=== PATIENT | female | born 1930 | race Caucasian/White ===

== ENCOUNTER 2017-04-06 19:46 | Emergency (ER) | payer MEDICARE, BC ==
[2017-04-06] MEDS ORDERED: ASPIRIN 81 MG TAB PO STA (19:54)
[2017-04-06 19:55] VITALS: TEMP 97.9
--- NOTE | 2017-04-06 20:14 | ERD ---
ER Documentation Chief Complaint Chief Complaint HPI 86-year-old female presents with left lateral pain along her lower rib cage that began approximately 4 hours ago. Also has some pain in her right upper quadrant. Denies shortness of breath, nausea or vomiting. Also denies being lightheaded. Does have electronic pacemaker after multiple ablations for having a fast heart rhythm. She is from [place], [place]. ROS All systems reviewed and are negative except as per history of present illness. Medications Home Meds Active Scripts Nitroglycerin* (Nitroglycerin* SL) 0.4 Mg Tab.subl, 0.4 MG SL Q5MIN Y for CHEST PAIN, #14 BOTTLE Prov:SALLIE SARKAR DO 04/06/17 Polyethylene Glycol* (Miralax*) 17 Gm Powd.pack, 17 GM PO DAILY for CONSTIPATION , #7 Prov:SALLIE SARKAR DO 04/06/17 Furosemide* (Lasix*) 20 Mg Tablet, 20 MG PO BID, #14 TAB Prov:SALLIE SARKAR DO 04/06/17 Physical Exam Vitals Vital Signs Date Time Temp Pulse Resp B/P Pulse Ox O2 Delivery O2 Flow Rate FiO2 04/06/17 22:06 04/06/17 22:00 70 17 104/80 99 Room Air 04/06/17 20:25 70 18 102/62 100 Room Air 04/06/17 19:55 97.9 70 17 107/65 100 Room Air Physical Exam Const: [] Mild distress Head: Atraumatic Eyes: Normal Conjunctiva ENT: Normal External Ears, Nose and Mouth. Neck: Full range of motion..~ No meningismus. Resp: Clear to auscultation bilaterally Cardio: Regular rate and rhythm, no murmurs Abd: Soft, right upper quadrant tenderness without guarding or rebound, non distended. Normal bowel sounds Skin: No petechiae or rashes Back: No midline or flank tenderness Ext: No cyanosis, or edema Neur: Awake and alert Psych: Mildly anxious Result Diagram: 04/06/17195704/06/171957 Results 24 hrs Laboratory Tests Test 04/06/17 19:58 04/06/17 21:49 White Blood Count 8.310^3/ul Red Blood Count 3.3810^6/ul Hemoglobin 11.1g/dl Hematocrit 33.7% Mean Corpuscular Volume 99.7fl Mean Corpuscular Hemoglobin 32.8pg Mean Corpuscular Hemoglobin Concent 32.9g/dl Red Cell Distribution Width 13.4% Platelet Count 48598^3/UL Mean Platelet Volume 10.8fl Neutrophils % 46.6% Lymphocytes % 45.3% Monocytes % 5.6% Eosinophils % 1.6% Basophils % 0.8% Nucleated Red Blood Cells % 0.0/100WBC Neutrophils # 3.910^3/ul Lymphocytes # 3.810^3/ul Monocytes # 0.510^3/ul Eosinophils # 0.110^3/ul Basophils # 0.110^3/ul Nucleated Red Blood Cells # 0.010^3/ul Prothrombin Time 36.8Sec Prothrombin Time Ratio 2.9 INR International Normalized Ratio 3.64 Activated Partial Thromboplast Time 66.0Sec Sodium Level 140mmol/L Potassium Level 4.8mmol/L Chloride Level 102mmol/L Carbon Dioxide Level 30mmol/L Anion Gap 13 Blood Urea Nitrogen 23mg/dl Creatinine 1.00mg/dl Glucose Level 97mg/dl Calcium Level 9.3mg/dl Total Bilirubin 0.3mg/dl Direct Bilirubin 0.00mg/dl Indirect Bilirubin 0.3mg/dl Aspartate Amino Transf (AST/SGOT) 33IU/L Alanine Aminotransferase (ALT/SGPT) 32IU/L Alkaline Phosphatase 100IU/L Troponin I 0.019ng/ml 0.021ng/ml B-Type Natriuretic Peptide 3210PG/ML Total Protein 7.5g/dl Albumin 3.8g/dl Globulin 3.70g/dl Albumin/Globulin Ratio 1.02 Lipase 146U/L Current Medications Medications (Trade) Dose Ordered Sig/Jared Route PRN Reason Start Time Stop Time Status Last Admin Dose Admin Aspirin (Aspirin) 162 mg ONCE STAT PO 04/06/17 19:54 04/06/17 19:56 DC 04/06/17 20:34 Morphine Sulfate (morphine) 2 mg ONCE STAT IV 04/06/17 20:51 04/06/17 20:52 DC Procedures/MDM Atypical chest pain and elderly female with multiple risk factors for acute coronary syndrome. However patient did not want to stay in the hospital at all. I told her the preference would be for her to stay because of her multiple risk factors and acute onset of chest pain she does not want to stay in the hospital. She did state she had a recent cardiac workup including echocardiogram and oncologist told that everything was normal. This was just this month. He was given a total of 324 mg aspirin including with the paramedics gave. Her pain decreased in the first hour in the emergency room and she had no further symptoms. Does have an elevated BNP but does have a history of CHF and is already on Lasix. I am going to discharge her with additional dose of Lasix. She also requests a prescription nitroglycerin. Given her this as well as MiraLAX for potential constipation causing it could be transient both extreme left upper quadrant and right upper quadrant pain. She states she is having normal problems however. Am recommending she follow- up with a primary care doctor tomorrow or the next day and obtain an echocardiogram although she is already had one recently. EKG interpretation: Electronically paced rhythm rate of 70, significant artifact , and anterolateral ST elevations in V3 through V5 however ST depression with inverted T-wave in V6. Interpretation: I see no acute process. I see no pulmonary edema, no pneumothorax, no infiltrates, no fractures machine accountant interpretation: Paced rhythm rate of 70. Departure Diagnosis: Primary Impression: Chest pain Additional Impressions: CHF (congestive heart failure) Normocytic anemia Condition: Stable MELLOHOUSTONSALLIENICOLE ROSARIO Apr 06, 2017 20:14
[2017-04-06 20:36] LABS: BASOPHIL # 0.1 10^3/ul (0.0-0.1); BASOPHILS % 0.8 % (0.0-2.0); EOSINOPHILS # 0.1 10^3/ul (0.0-0.5); EOSINOPHILS % 1.6 % (0.0-7.0); HEMATOCRIT 33.7 % (37.0-47.0); HEMOGLOBIN 11.1 g/dl (12.0-16.0); LYMPHOCYTES # 3.8 10^3/ul (0.8-2.9); LYMPHOCYTES % 45.3 % (15.0-51.0); MEAN CORPUSCULAR HEMOGLOBIN 32.8 pg (29.0-33.0); MEAN CORPUSCULAR HGB CONC 32.9 g/dl (32.0-37.0); MEAN CORPUSCULAR VOLUME 99.7 fl (82.0-101.0); MEAN PLATELET VOLUME 10.8 fl (7.4-10.4); MONOCYTE # 0.5 10^3/ul (0.3-0.9); MONOCYTES % 5.6 % (0.0-11.0); NEUTROPHIL # 3.9 10^3/ul (1.6-7.5); NEUTROPHILS % 46.6 % (39.0-77.0); PLATELET COUNT 184 10^3/UL (140-415); RED BLOOD COUNT 3.38 10^6/ul (4.20-5.40); RED CELL DISTRIBUTION WIDTH 13.4 % (11.5-14.5); WHITE BLOOD COUNT 8.3 10^3/ul (4.8-10.8)
[2017-04-06] MEDS ORDERED: morphine 2 MG INJ IV STA (20:51)
[2017-04-06 21:02] LABS: INR 3.64; PROTIME 36.8 Sec (12.2-14.2); PT RATIO 2.9
[2017-04-06 21:09] LABS: ALBUMIN 3.8 g/dl (3.3-4.9); ALBUMIN/GLOBULIN RATIO 1.02; BILIRUBIN,INDIRECT 0.3 mg/dl (0-1.1); BILIRUBIN,TOTAL 0.3 mg/dl (0.2-1.3); CALCIUM 9.3 mg/dl (8.4-10.2); POTASSIUM 4.8 mmol/L (3.5-5.1); TOTAL PROTEIN 7.5 g/dl (6.1-8.1)
[2017-04-06 21:18] LABS: TROPONIN-I 0.019 ng/ml (0.00-0.12)
--- NOTE | 2017-04-06 21:18 | RADRPT ---
PROCEDURE: Portable chest x-ray. CLINICAL INDICATION: Chest pain. TECHNIQUE: Portable AP view of the chest. COMPARISON: None. FINDINGS: No pulmonary edema or conolidation is identified. The cardiac silhouette is enlarged. There is a ri ght chest cardiac pacemaker. There are aortic calcifications. No pleural effusion is seen. There i s no pneumothorax. IMPRESSION: 1. No evidence of acute cardiopulmonary disease. 2. Enlarged cardiac silhouette and aortic atherosclerosis. 3. Cardiac pacemaker. RPTAT: HTAR .Chalino Lopez MD, MD Date Time Electronically viewed and signed by .Chalino Lopez MD, on 04/06/2017 21:18 .R/
[2017-04-06 22:00] VITALS: BP 104/80; PULSE 70; RESP 17
[2017-04-06] MEDS ORDERED: FURO-110 PO (23:40)
[2017-04-06] MEDS ORDERED: POLY17PO6 PO (23:41)
[2017-04-06] MEDS ORDERED: NITR0.4T32 SL (23:46)
== END 2017-04-06 23:59 | disposition home or self-care (01) ==
LOC: E/R 19:46
DX: I50.9 Heart failure, unspecified (principal); D64.9 Anemia, unspecified; Z95.0 Presence of cardiac pacemaker
CPT/HCPCS: 36415; 71010; 80053; 83690; 83880; 84484; 85025; 85610; 85730; 93005; 99285; J2270

== ENCOUNTER 2017-05-22 20:11 | Inpatient (IN) | END 2017-05-26 12:05 | disposition home or self-care (01) | DRG 291 ==

== ENCOUNTER 2018-07-08 09:05 | Inpatient (IN) | payer MEDICARE, BC ==
[~2018-07-08] VITALS: Ht 175.3 cm; Wt 54.5 kg
[2018-07-08] VITALS (7 sets, daily range): BP systolic 95–98; BP diastolic 48–54; PULSE 70–77; RESP 16–20; Ht 175.3 cm; Wt 54.5 kg
[~2018-07-08 09:05] MED LIST: ATOR10TA65 PO; CHOL100062 PO; CYCL10TA7 PO; FURO-110 PO; HYDR-4012 PO; LEVO112T57 PO; LISI2.5T59 PO; MULT1TAB6 PO; NITR0.4T32 SL; POLY17PO6 PO; SERT-165 PO; TEMA30CA PO; WARF4TAB64 PO
[2018-07-08] MEDS ORDERED: CYAN500T46 PO (09:43)
[2018-07-08] MEDS ORDERED: FURO20TA3 PO (09:44)
[2018-07-08] MEDS ORDERED: ONDANSETRON 4 MG INJ IV STA (09:45)
[2018-07-08] MEDS ORDERED: MULT-902 PO (09:45)
[2018-07-08] MEDS ORDERED: SOD CHLORIDE 0.9% 1,000 ML IV STA (09:45)
[2018-07-08] MEDS ORDERED: HYDR-4012 PO (09:45)
--- NOTE | 2018-07-08 10:14 | ERD ---
ER Documentation Chief Complaint Chief Complaint c/0 chest pain, generalized body pain, cough. Febrile HPI 88-year-old woman brought in by EMS from home for multiple complaints including generalized weakness, dizziness, nausea, shortness of breath, cough. She was diagnosed with a urinary tract infection recently and started using Macrobid, she is on day 3. She states she feels weak and is unable to get up off the bed as easily as she did a few days ago. She denies chest pain, no headache or blurry vision, no vomiting or diarrhea although the patient does feel nauseous. Patient was transported here by EMS without further complications. ROS All systems reviewed and are negative except as per history of present illness. Medications Home Meds Active Scripts Nitroglycerin* (Nitroglycerin* SL) 0.4 Mg Tab.subl, 0.4 MG SL Q5MIN PRN for CHEST PAIN, #14 BOTTLE Prov:SALLIE SARKAR DO 04/06/17 Polyethylene Glycol* (Miralax*) 17 Gm Powd.pack, 17 GM PO DAILY for CONSTIPATION, #7 Prov:MELLOHOUSTONSALLIE DO 04/06/17 Reported Medications Hydrocodone/Acetaminophen ([place] 7.5-325 Tablet) 1 Each Tablet, 1 EACH PO DAILY PRN for SEVERE PAIN LEVEL 7-10, TAB 07/08/18 Multivitamin/Iron/Folic Acid (Centrum Adults Tablet) 1 Each Tablet, 1 EACH PO DAILY, TAB 07/08/18 Furosemide* (Furosemide*) 20 Mg Tablet, 20 MG PO QAM, #60 TAB 07/08/18 Cyanocobalamin* (Vitamin B12*) 500 Mcg Tab, 500 MCG PO DAILY, TAB 07/08/18 Levothyroxine Sodium* (Levothyroxine Sodium*) 112 Mcg Tablet, 112 MCG PO BEFORE BREAKFAST, #30 TAB 05/22/17 Atorvastatin Calcium (Atorvastatin Calcium) 10 Mg Tablet, 10 MG PO QHS, #30 TAB 05/22/17 Temazepam* (Temazepam*) 30 Mg Capsule, 30 MG PO HS PRN for INSOMNIA, CAP 05/22/17 Sertraline Hcl* (Sertraline Hcl*) 100 Mg Tablet, 100 MG PO DAILY, #30 TAB 05/22/17 Lisinopril* (Lisinopril*) 2.5 Mg Tablet, 2.5 MG PO DAILY, #30 TAB 05/22/17 Cyclobenzaprine Hcl* (Cyclobenzaprine Hcl*) 10 Mg Tablet, 10 MG PO QHS PRN for MUSCLE SPASMS, #60 TAB 05/22/17 Cholecalciferol* (Vitamin D3*) 1,000 Unit Tablet, 1000 UNIT PO DAILY, TAB 05/22/17 Warfarin Sodium* (Warfarin Sodium*) 4 Mg Tablet, 4 MG PO DAILY, TAB 05/22/17 Discontinued Reported Medications Folic Acid/Mv,Fe,Other Min (Centrum Complete Multivit Tab) 1 Each Tablet, 1 EACH PO DAILY, TAB 05/22/17 Hydrocodone/Acetaminophen ([place] 7.5-325 Tablet) 1 Each Tablet, 1 EACH PO DAILY PRN for SEVERE PAIN LEVEL 7-10, TAB 05/22/17 Discontinued Scripts Furosemide* (Lasix*) 20 Mg Tablet, 20 MG PO BID, #14 TAB Prov:SLALIE SARKAR DO 04/06/17 Allergies Allergies: Coded Allergies: pentazocine (Verified Allergy, Severe, 05/22/17) PMhx/Soc Hypothyroidism, hypertension, pacemaker on anticoagulation, bilateral lower peripheral vascular disease, atrial fibrillation, congestive heart failure, depression, systemic lupus erythematosus History of Surgery: Yes (back, edie, hernia repair x2 pacemaker stent) Anesthesia Reaction: No Hx Neurological Disorder: No Hx Respiratory Disorders: No Hx Cardiac Disorders: Yes (pacemaker stents afib) Hx Psychiatric Problems: No Hx Miscellaneous Medical Probl: No Hx Alcohol Use: No Hx Substance Use: No Hx Tobacco Use: Yes (5 sticks/day currently) Smoking Status: Current every day smoker FmHx Family History: No diabetes Physical Exam Vitals Vital Signs Date Temp Pulse Resp B/P (MAP) Pulse Ox O2 O2 Flow FiO2 Time Delivery Rate 07/08/18 100.0 70 20 93/52 (66) 97 Nasal 2.0 12:03 Cannula 07/08/18 100.1 11:25 07/08/18 78 20 97/61 (73) 98 Nasal 2.0 11:01 Cannula 07/08/18 101.4 10:20 07/08/18 101.4 70 20 129/64 95 09:24 (85) Physical Exam Const: Well-developed well-nourished elderly woman, appears dehydrated, afebrile, nontoxic in appearance HEENT: Dry mucous membranes, pink conjunctive a, no goiter Resp: Clear to auscultation bilaterally Cardio: Regular rate and rhythm, no murmurs Abd: Soft, non tender, non distended. Normal bowel sounds Skin: No petechiae or rashes Back: No midline or flank tenderness Ext: No cyanosis, or edema, chronic skin changes due to peripheral vascular disease Neur: Awake and alert x3, no focal deficits or facial asymmetry, pupils equal round reactive to light Psych: Normal Mood and Affect Result Diagram: 07/08/18 1000 07/08/18 1000 Results 24 hrs Laboratory Tests Test 07/08/18 10:00 White Blood Count 15.0 10^3/ul Red Blood Count 3.76 10^6/ul Hemoglobin 12.0 g/dl Hematocrit 37.8 % Mean Corpuscular Volume 100.5 fl Mean Corpuscular Hemoglobin 31.9 pg Mean Corpuscular Hemoglobin Concent 31.7 g/dl Red Cell Distribution Width 14.1 % Platelet Count 182 10^3/UL Mean Platelet Volume 11.3 fl Immature Granulocytes % 0.500 % Neutrophils % 75.2 % Lymphocytes % 21.5 % Monocytes % 2.6 % Eosinophils % 0.0 % Basophils % 0.2 % Nucleated Red Blood Cells % 0.0 /100WBC Immature Granulocytes # 0.070 10^3/ul Neutrophils # 11.3 10^3/ul Lymphocytes # 3.2 10^3/ul Monocytes # 0.4 10^3/ul Eosinophils # 0.0 10^3/ul Basophils # 0.0 10^3/ul Nucleated Red Blood Cells # 0.0 10^3/ul Sodium Level 139 mmol/L Potassium Level 4.5 mmol/L Chloride Level 105 mmol/L Carbon Dioxide Level 27 mmol/L Anion Gap 7 Blood Urea Nitrogen 19 mg/dl Creatinine 0.85 mg/dl Est Glomerular Filtrat Rate mL/min mL/min Glucose Level 115 mg/dl Calcium Level 9.2 mg/dl Total Bilirubin 0.8 mg/dl Direct Bilirubin 0.00 mg/dl Indirect Bilirubin 0.8 mg/dl Aspartate Amino Transf (AST/SGOT) 44 IU/L Alanine Aminotransferase (ALT/SGPT) 25 IU/L Alkaline Phosphatase 110 IU/L Troponin I 0.019 ng/ml B-Type Natriuretic Peptide 5720 PG/ML Total Protein 7.3 g/dl Albumin 3.9 g/dl Globulin 3.40 g/dl Albumin/Globulin Ratio 1.14 Lipase 22 U/L Current Medications Medications Dose Sig/Jared Start Time Status Last (Trade) Ordered Route PRN Stop Time Admin Dose Reason Admin Sodium 1,000 ml @ Q1H STAT 07/08/18 DC 07/08/18 Chloride 1,000 mls/hr IV 09:45 10:07 07/08/18 10:44 Ondansetron 4 mg ONCE STAT 07/08/18 DC 07/08/18 HCl (Zofran IV 09:45 10:07 Inj) 07/08/18 09:47 650 mg ONCE ONCE 07/08/18 DC 07/08/18 Acetaminophen PO 10:30 10:20 (Tylenol 07/08/18 10:31 Tab) Furosemide 40 mg ONCE ONCE 07/08/18 DC (Lasix) IV 11:00 07/08/18 11:01 Furosemide 20 mg BID 07/08/18 (Lasix) DIURETICS 18:00 IV Procedures/MDM IV line was established patient was placed on registered nurse cardiac telemetry rhythm strip revealed a sinus rhythm at about 90 bpm with upright P and T waves. Patient was afebrile I administered 1 L normal saline IV for dehydration and acetaminophen 650 mg p.o. for complaints of pain. I administered Zofran 4 mg IV for complaints of dizziness. One AP view of the chest performed, read by me reveals interstitial edema bilaterally, cardiomegaly, no acute infiltrates. EKG performed, read by me revealed a paced rhythm at 93 bpm, left axis deviation, intraventricular block, no concerning ST elevations or depressions noted CBC reveals a leukocytosis of 15, electrolytes revealed increased BUN/creatinine ratio concerning for dehydration, troponin negative, BNP elevated over 5000 I also administered furosemide 40 mg IV for CHF. UA is pending I will follow-up although given the patient's vague symptoms of shortness of breath she will be admitted to telemetry setting. Departure Diagnosis: Primary Impression: Acute dehydration Additional Impressions: CHF (congestive heart failure) Heart failure type: systolic Heart failure chronicity: acute on chronic Qualified Codes: I50.23 - Acute on chronic systolic (congestive) heart failure Weakness Condition: LUCINDA Herrera MD Jul 08, 2018 10:14
[2018-07-08] MEDS ORDERED: ACETAMINOPHEN 325 MG TAB PO ONE (10:30)
[2018-07-08] MEDS ORDERED: FUROSEMIDE 40 MG INJ IV ONE (11:00)
--- NOTE | 2018-07-08 12:26 | CONS ---
Assessment/Plan Cardiology NYHA: II Heart Failure Type: Acute on Chronic Heart Failure Type: Diastolic Assessment/Plan Hospital Course (Demo Recall) Acute decompensated diastolic congestive heart failure Preserved ejection fraction echocardiogram 2018 Possible Sepsis/SIRS Atrial fibrillation History of pacemaker Active tobacco use -Patient presents with subjective fevers and chills and mildly productive cough. Her history has been inconsistent in discussion of chest discomfort. Initially she said she had yesterday, but then on repeat questioning she denies. On examination, there is evidence of mild pulmonary vascular congestion as well as on chest x-ray. She is been given 1 dose of IV Lasix in the ER. Would continue gentle diuretics as renal function and blood pressure permits. We will check serial cardiac enzymes and echocardiogram -Consider infectious workup as well given leukocytosis as well as symptoms of fevers and chills over the past few days. Consultation Date/Type/Reason Admit Date/Time Type of Consult Cardiology Reason for Consultation Congestive heart failure Date/Time of Note DATE: 07/08/18 TIME: 12:17 Hx of Present Illness This is an 88-year-old female with past medical history of paroxysmal atrial fibrillation, diastolic congestive heart failure who presents with 2-3 days symptoms of fevers and chills and not feeling well. The symptoms began on Friday. There was concern for UTI and patient was started on antibiotics yesterday. Yesterday, patient states she had some chest discomfort. On further questioning, she then denies chest discomfort. She denies any shortness of breath, she has been having a wet cough which has been minimally productive for white phlegm. She denies any chest pain currently or shortness of breath. She overall feels tired. She also does actively smoke 12 point review of systems was performed with all pertinent positives and negatives mentioned above and all else is negative Past Medical History Paroxysmal atrial fibrillation Medical History: coronary artery disease, hypertension Home Meds Active Scripts Nitroglycerin* (Nitroglycerin* SL) 0.4 Mg Tab.subl, 0.4 MG SL Q5MIN PRN for CHEST PAIN, #14 BOTTLE Prov:MELLOSALLIE 04/06/17 Polyethylene Glycol* (Miralax*) 17 Gm Powd.pack, 17 GM PO DAILY for CONSTIPATION, #7 Prov:SALLIE SARKAR DO 04/06/17 Reported Medications Hydrocodone/Acetaminophen ([place] 7.5-325 Tablet) 1 Each Tablet, 1 EACH PO DAILY PRN for SEVERE PAIN LEVEL 7-10, TAB 07/08/18 Multivitamin/Iron/Folic Acid (Centrum Adults Tablet) 1 Each Tablet, 1 EACH PO DAILY, TAB 07/08/18 Furosemide* (Furosemide*) 20 Mg Tablet, 20 MG PO QAM, #60 TAB 07/08/18 Cyanocobalamin* (Vitamin B12*) 500 Mcg Tab, 500 MCG PO DAILY, TAB 07/08/18 Levothyroxine Sodium* (Levothyroxine Sodium*) 112 Mcg Tablet, 112 MCG PO BEFORE BREAKFAST, #30 TAB 05/22/17 Atorvastatin Calcium (Atorvastatin Calcium) 10 Mg Tablet, 10 MG PO QHS, #30 TAB 05/22/17 Temazepam* (Temazepam*) 30 Mg Capsule, 30 MG PO HS PRN for INSOMNIA, CAP 05/22/17 Sertraline Hcl* (Sertraline Hcl*) 100 Mg Tablet, 100 MG PO DAILY, #30 TAB 05/22/17 Lisinopril* (Lisinopril*) 2.5 Mg Tablet, 2.5 MG PO DAILY, #30 TAB 05/22/17 Cyclobenzaprine Hcl* (Cyclobenzaprine Hcl*) 10 Mg Tablet, 10 MG PO QHS PRN for MUSCLE SPASMS, #60 TAB 05/22/17 Cholecalciferol* (Vitamin D3*) 1,000 Unit Tablet, 1000 UNIT PO DAILY, TAB 05/22/17 Warfarin Sodium* (Warfarin Sodium*) 4 Mg Tablet, 4 MG PO DAILY, TAB 05/22/17 Discontinued Reported Medications Folic Acid/Mv,Fe,Other Min (Centrum Complete Multivit Tab) 1 Each Tablet, 1 EACH PO DAILY, TAB 05/22/17 Hydrocodone/Acetaminophen ([place] 7.5-325 Tablet) 1 Each Tablet, 1 EACH PO DAILY PRN for SEVERE PAIN LEVEL 7-10, TAB 05/22/17 Discontinued Scripts Furosemide* (Lasix*) 20 Mg Tablet, 20 MG PO BID, #14 TAB Prov:SALLIE SARKAR DO 04/06/17 Allergies: Coded Allergies: pentazocine (Verified Allergy, Severe, 05/22/17) Past Surgical History Past Surgical Hx: other (Including but not limited to pacemaker) Family History Significant Family History: no pertinent family hx Social History Smoking Status: Current every day smoker Exam/Review of Systems Vital Signs Vitals Vital Signs Date Temp Pulse Resp B/P (MAP) Pulse Ox O2 O2 Flow FiO2 Time Delivery Rate 07/08/18 100.0 70 20 93/52 (66) 97 Nasal 2.0 12:03 Cannula Exam Constitutional: alert, oriented (Appears weak, no apparent distress, no dyspnea with speaking) Respiratory: other (Coarse breath sounds bilaterally, minimal scattered crackles) Cardiovascular: regular rate and rhythm (S1-S2 heard,), systolic murmur Gastrointestinal: soft, non-tender, bowel sounds Extremities: other (No significant edema) Labs Result Diagram: 07/08/18 1000 07/08/18 1000 Results 24hrs Laboratory Tests Test 07/08/18 10:00 White Blood Count 15.0 #H Red Blood Count 3.76 #L Hemoglobin 12.0 # Hematocrit 37.8 # Mean Corpuscular Volume 100.5 Mean Corpuscular Hemoglobin 31.9 Mean Corpuscular Hemoglobin Concent 31.7 L Red Cell Distribution Width 14.1 Platelet Count 182 Mean Platelet Volume 11.3 H Immature Granulocytes % 0.500 H Neutrophils % 75.2 Lymphocytes % 21.5 Monocytes % 2.6 Eosinophils % 0.0 Basophils % 0.2 Nucleated Red Blood Cells % 0.0 Immature Granulocytes # 0.070 H Neutrophils # 11.3 H Lymphocytes # 3.2 H Monocytes # 0.4 Eosinophils # 0.0 Basophils # 0.0 Nucleated Red Blood Cells # 0.0 Sodium Level 139 Potassium Level 4.5 Chloride Level 105 Carbon Dioxide Level 27 Anion Gap 7 Blood Urea Nitrogen 19 Creatinine 0.85 Est Glomerular Filtrat Rate mL/min Glucose Level 115 Calcium Level 9.2 Total Bilirubin 0.8 Direct Bilirubin 0.00 Indirect Bilirubin 0.8 Aspartate Amino Transf (AST/SGOT) 44 Alanine Aminotransferase (ALT/SGPT) 25 Alkaline Phosphatase 110 Troponin I 0.019 B-Type Natriuretic Peptide 5720 H Total Protein 7.3 Albumin 3.9 Globulin 3.40 H Albumin/Globulin Ratio 1.14 Lipase 22 L Imaging Imaging ECG is V paced at 70 bpm, likely baseline atrial fibrillation Issa Winters DO Jul 08, 2018 12:26
[2018-07-08] MEDS ORDERED: ONDANSETRON 4 MG INJ IV PRN (13:30)
[2018-07-08] MEDS ORDERED: ZOLPIDEM 5 MG TAB PO PRN (13:30)
[2018-07-08] MEDS: ACETAMINOPHEN 325 MG TAB PO PRN ×2 (14:01→20:39)
[2018-07-08] MEDS: PIPER-TAZO 3.375 GM IV (PMX) 100 ML IVPB SCH ×3 (14:02→22:07)
--- NOTE | 2018-07-08 17:21 | HP ---
DATE OF ADMISSION: 07/08/2018 ADMITTING DIAGNOSES: 1. Congestive heart failure. 2. Systemic inflammatory response syndrome. HISTORY OF PRESENT ILLNESS: The patient is an 88-year-old female with coronary artery dise ase, paroxysmal atrial fibrillation, diastolic heart failure, peripheral vascular disease, hypertensi on, mitral stenosis, hypothyroidism, history of lupus, who presented to the emergency room with weakn ess progressively over the last few days. The patient was doing well up until Friday where she start ed feeling weak. Over the next couple of days, the patient started getting a progressive cough, furt her weakness, lethargy and caused her to present to the emergency room. The patient was started on a ntibiotics yesterday for urinary tract infection but the patient has no symptoms regarding this. The patient does report a productive cough intermittently that is productive of white sputum. The patie nt denies any wheezing and has had some mild shortness of breath, but no chest pain or palpitations. The patient denies any dysuria, burning or blood in the urine and no swelling in the ankles. PAST MEDICAL HISTORY: Significant for mitral stenosis, paroxysmal atrial fibrillation, chronic diast olic heart failure, coronary artery disease, paroxysmal atrial fibrillation, history of pacemaker linda cement, hypothyroidism, history of lupus, lumbar spondylosis with radiculopathy, insomnia, depression . 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 FAMILY HISTORY: Noncontributory. ALLERGIES. PENTAZOCINE. SOCIAL HISTORY: The patient is a . Currently smoking approximately 5 cigarettes a day. Occasi onal alcohol use. The patient lives in assisted living facility. MEDICATIONS: 1. Sertraline 100 mg daily. 2. Levothyroxine 0.112 mg daily. 3. Lisinopril 2.5 mg daily. 4. Warfarin 4 mg daily. 5. Atorvastatin 10 mg daily. 6. Temazepam 30 mg at bedtime. 7. MiraLax daily. 8. Lasix 20 mg daily. 9. Cyclobenzaprine p.r.n. 10. [place] p.r.n. 11. The patient was on Macrobid 100 mg b.i.d. PHYSICAL EXAMINATION: VITAL SIGNS: Temperature 101.4, pulse 78, respirations 20, blood pressure 97/61, oxygen saturation 9 8% on 2-liter nasal cannula oxygen. GENERAL: Well-developed, thin female, ill appearing, lying in bed. SKIN: Diaphoretic with a flushed face. HEENT: EOMI, PERRLA. Oropharynx is clear with decreased mucus pooling. NECK: A 2+ carotid upstroke. No lymphadenopathy, no thyromegaly. There is elevated jugular venous pressure. CHEST: Bilateral crackles approximately 1/3 to 1/2 up with rhonchi with cough. HEART: Regular rate and rhythm. There is II/ systolic murmur at the left lower sternal border. T here is a II/ holosystolic murmur as well. ABDOMEN: Soft. There is suprapubic tenderness. Normoactive bowel sounds. Positive hepatojugular r eflux. No hepatosplenomegaly noted. GENITOURINARY: Normal female externally. Internal exam is not performed. EXTREMITIES: No cyanosis, clubbing. Trace bilateral lower extremity edema with stasis changes. Dim inished pulses bilaterally. NEUROLOGIC: Nonfocal. LABORATORY EXAMINATION: White blood cell count 15.0, hemoglobin of 12.0, hematocrit 37.8, platelets of 182. Sodium 139, potassium 4.5, chloride 105, bicarbonate 27, BUN of 19, creatinine 0.85, blood s ugar of 115. AST 44, ALT of 25. Brain natriuretic peptide of 5720. Albumin of 3.9 and lipase of 22 . DIAGNOSTIC DATA: Chest x-ray shows cardiomegaly with mild generalized interstitial prominence to sug gest of mild interstitial edema, diminished visualization of the retrocardiac region, could be due to superimposed cardiomegaly along with underlying atelectasis, although possibility of an infilt rate is not excluded. ASSESSMENT AND PLAN: The patient is an 88-year-old female with coronary artery disease, pa roxysmal atrial fibrillation, chronic diastolic heart failure, hypertension, hypothyroidism and urina ry tract infection, who presents to the emergency room with generalized weakness. The patient was fo und to be in congestive heart failure as well as having hypotension, fever, possible dehydration with possible systemic inflammatory response syndrome. The patient is being admitted to telemetry for fu rther evaluation and treatment. 1. Congestive heart failure. The patient has acute on chronic combined congestive heart failure. I appreciate Dr. Winters's input into this case. We will do gentle diuresis as patient is also hypoten sive and some signs of hypovolemia. Continue with diuresis. Low dosage lisinopril. Do strict I's a nd O's. 2. Systemic inflammatory response syndrome. The patient is with urinary tract infection as well as a possible lung infection. We will place the patient on Zosyn IV. Do urine culture. Follow chest x -rays. 3. Hypothyroidism. Continue the patient's levothyroxine. 4. Insomnia. We will continue the patient's temazepam. Last admission, the patient had altered men gavin status off of the temazepam, so we will need to continue this while she is in the hospital. 5. Depression. We will continue the patient's sertraline. Dictated By: MILY GRAVES MD, SR/CHANEL Conf#: [id number] DID#: [id number]
[2018-07-08] MEDS: NICOTINE (14 MG/24 HR) PATCH TRANSDERM SCH (17:30)
[2018-07-08] MEDS ORDERED: FUROSEMIDE 20 MG INJ IV SCH (18:00)
[2018-07-08] MEDS: WARFARIN 2 MG TAB PO SCH (18:30)
[2018-07-08] MEDS: HYDROCODONE/APAP (5/325) TAB PO PRN (18:31)
[2018-07-08] MEDS: FUROSEMIDE 20 MG INJ IV SCH (19:06)
[2018-07-08] MEDS: ATORVASTATIN 10 MG TAB PO SCH (20:40)
[2018-07-09] VITALS (12 sets, daily range): BP systolic 101–137; BP diastolic 56–67; PULSE 70–94; RESP 16–20
[2018-07-09] MEDS: FUROSEMIDE 20 MG INJ IV SCH (05:21)
[2018-07-09] MEDS: PIPER-TAZO 3.375 GM IV (PMX) 100 ML IVPB SCH ×3 (05:21→21:21)
[2018-07-09] MEDS: LEVOTHYROXINE 112 MCG TAB PO SCH (06:44)
[2018-07-09] MEDS ORDERED: MAGNESIUM SULFATE 2 GM/50 ML 50 ML IVPB ONE (08:30)
[2018-07-09] MEDS: SERTRALINE 100 MG TAB PO SCH (08:38)
[2018-07-09] MEDS: NICOTINE (14 MG/24 HR) PATCH TRANSDERM SCH (08:38)
[2018-07-09] MEDS: LISINOPRIL 5 MG TAB PO SCH (08:40)
[2018-07-09] MEDS: POLYETHYLENE GLYCOL 17 GM PACKET PO SCH ×2 (08:44→21:22)
--- NOTE | 2018-07-09 10:24 | PN ---
DATE: 07/09/2018 SUBJECTIVE: The patient is feeling a little bit better, less cough, no chest pain, still very weak. OBJECTIVE: VITAL SIGNS: Temperature 98.3, pulse of 80, respirations 20, blood pressure 123/60, oxygen saturatio n 97% on room air. Ins and outs 1360 IN, 900 out, positive balance 460. CHEST: Coarse bilateral rhonchi with basilar crackles diffusely through both lungs. HEART: Regular rate and rhythm, II/ systolic ejection murmur. ABDOMEN: Soft, nontender. EXTREMITIES: No cyanosis, clubbing. There is trace lower extremity edema with stasis changes. LABORATORY DATA: INR of 1.95. Sodium 137, potassium 3.8, chloride 104, bicarbonate 25, BUN of 21, c reatinine 0.9, glucose 91, calcium 8.1, magnesium 1.8, total bilirubin 0.7, AST 56. Brain natriureti c peptide 7430, hemoglobin of 11.2, hematocrit 35.3, platelets 162. White blood cell count 9.8. ASSESSMENT AND PLAN: 1. Systemic inflammatory response syndrome, unclear if the patient has pulmonary versus urinary infe ction. Urinalysis is unremarkable. The patient did receive 1 day of antibiotics prior to coming in. We will continue to follow her infection and continue IV antibiotics. 2. Acute on chronic congestive heart failure/coronary artery disease/paroxysmal afib/mitral stenosis . The patient remains stable and will continue to need telemetry monitoring secondary to her congest juan m heart failure. The patient's blood pressure is better and no longer on IV fluids. We will [place] with diuresis and follow strict I's and O's. 3. Hyperthyroidism, stable. Continue with meds. 4. Depression, stable. Continue with meds. 5. Generalized weakness. Will get physical therapy involved for strengthening, gait training and ba hal training. Dictated By: MILY GRAVES MD SR/NTS Conf#: [id number] DID#: [id number] CC: MILY GRAVES MD;*EndCC*
[2018-07-09] MEDS: ACETAMINOPHEN 325 MG TAB PO PRN (14:22)
--- NOTE | 2018-07-09 16:24 | RADRPT ---
Echocardiogram Report Patient Name: Thaddeus MADRID ID: [id number] : [id number] (88y 3m)Study Date: 07/08/2018 1:34:29 PM Gender: FAccession #: [id number] Tech: JaydenParesh Cohen [facility] Location: [facility] Ref.Physician: ISSA JOSE Height(Cm): BSA: Weight(Kg): Quality: AdequateAccount #: Procedures: Echocardiographic Report: Transthoracic echocardiogram with complete 2D, M-Mode, and doppler examination. Indications: Chest Pain, and Pulmonary Hypertension. Measurements: 2D/M Mode Doppler Measurement Value Normal Range Measurement Value Normal Range LVIDd 2D 2.9 [ 3.8 - 5.2 ] cm CITLALI Vmax 1.3 [ 2.0 - 4.0 ] cm2 LVIDs 2D 2.0 [ 2.2 - 3.5 ] cm CITLALI VTI 1.4 [ 2.0 - 4.0 ] cm2 LVPWd 2D 1.7 [ 0.6 - 0.9 ] cm AV Mean Asad 2.3 [ 70.0 - 90.0 ] cm/sec IVSd 2D 2.2 [ 0.6 - 0.9 ] cm AV Mean PG 24.0 [ 2.0 - 4.0 ] mmHg IVS/LVPW 2D 1.3 ratio AV Peak Asad 3.4 [ 100.0 - 170.0 ] cm/sec AoR Diam 2D 2.9 [ 2.3 - 3.1 ] cm AV Peak PG 47.0 [ 2.0 - 9.0 ] mmHg LA/Ao 2D 2 ratio AV VTI 67.2 cm LA Dimen 2D 5.1 [ 2.7 - 3.8 ] cm LVOT Mean Asad 1.0 [ 60.0 - 80.0 ] cm/sec LVOT Diam 2.0 [ 2.1 - 2.5 ] cm LVOT Mean PG 5.0 [ 1.0 - 3.0 ] mmHg LVOT Area 3.1 cm2 LVOT Peak Asad 1.4 [ 70.0 - 110.0 ] cm/sec LVOT Peak PG 8.0 [ 2.0 - 6.0 ] mmHg LVOT VTI 29.9 [ 20.0 - 30.0 ] cm MV E Peak Asad 1.9 [ 60.0 - 130.0 ] cm/sec MV Decel Time 426 [ 104 - 258 ] msec Lat E` Asad 0.0 [ 10.0 - 15.0 ] cm/sec TR Peak Asad 3.8 [ 100.0 - 280.0 ] cm/sec TR Peak PG 59.0 mmHg RVSP 74.0 [ 10.0 - 36.0 ] mmHg RA Pressure 15.0 mmHg Findings: Left Ventricle: Hyperdynamic left ventricular systolic function. Severe asymmetric septal hypertrophy. Reduced left ventricular cavity size. Ejection fraction is visually estimated at 70 %. Abnormal Diastolic Function. Right Ventricle: Normal right ventricular size. Normal right ventricular systolic function. Linear artifact in right ventricle suggestive of catheter, pacer lead, or ICD lead. Left Atrium: There is severe enlargement of left atrium. LA Dimension 5.10 cm. Right Atrium: There is mild enlargement of right atrium. Mitral Valve: Mitral valve leaflets appear moderately thickened. Moderate mitral annular calcification. Moderate mitral valve regurgitation. Moderate mitral stenosis. Aortic Valve: Mild to moderate aortic stenosis. Mean PG 24.00 mmHg. Aortic valve area 1.40 cm2. Aortic cusps appear moderately calcified. Mild aortic valve regurgitation. Tricuspid Valve: Normal appearance of the tricuspid valve. Estimated peak PA systolic pressure 74 mmHg. There is moderate to severe tricuspid regurgitation. Pulmonic Valve: Pulmonic valve not well visualized. Pericardium: Normal pericardium with no significant pericardial effusion. Aorta: Normal aortic root. IVC: Dilated IVC without respiratory collapse consistent with elevated right atrial pressure. Conclusions: Hyperdynamic left ventricular systolic function. Severe asymmetric septal hypertrophy. Reduced left ventricular cavity size. Ejection fraction is visually estimated at 70 %. Abnormal Diastolic Function. Normal right ventricular size. Normal right ventricular systolic function. Linear artifact in right ventricle suggestive of catheter, pacer lead, or ICD lead. There is severe enlargement of left atrium. There is mild enlargement of right atrium. Moderate mitral valve regurgitation. Moderate mitral stenosis. Mild to moderate aortic stenosis. Mild aortic valve regurgitation. Estimated peak PA systolic pressure 74 mmHg. There is moderate to severe tricuspid regurgitation. Normal pericardium with no significant pericardial effusion. Electronically Signed By: Issa Jose 2018-07-09 16:23:19 PST
--- NOTE | 2018-07-09 16:43 | CONS ---
Assessment/Plan Cardiology NYHA: II Heart Failure Type: Acute on Chronic Heart Failure Type: Diastolic Assessment/Plan Hospital Course (Demo Recall) Acute decompensated diastolic congestive heart failure Preserved ejection fraction echocardiogram 07/08/2018 Possible Sepsis/SIRS Atrial fibrillation History of pacemaker Active tobacco use -Patient with improvement of shortness of breath. Echocardiogram with preserved ejection fraction. Would switch Lasix to p.o. starting from tomorrow. -Echocardiogram with mitral regurgitation, if blood pressure remained stable, would start DELROY inhibitor for afterload reduction. Consultation Date/Type/Reason Admit Date/Time Jul 08, 2018 at 11:43 Initial Consult Date Type of Consult Cardiology Date/Time of Note DATE: 07/09/18 TIME: 16:41 24 HR Interval Summary Free Text/Dictation Shortness of breath is much better today. Denies palpitations, chest pain Exam/Review of Systems Vital Signs Vitals Vital Signs Date Temp Pulse Resp B/P (MAP) Pulse Ox O2 O2 Flow FiO2 Time Delivery Rate 07/09/18 70 16:07 07/09/18 98.1 20 119/59 98 15:36 (79) 07/08/18 Nasal 2.0 20:30 Cannula Intake and Output 07/08/18 07/08/18 07/09/18 1515:00 23:00 07:00 IntakeIntake Total 460 ml 900 ml OutputOutput Total 900 ml BalanceBalance 460 ml 0 ml Exam Constitutional: alert, oriented (No apparent distress) Respiratory: other (Coarse breath sounds bilaterally, no wheezing) Cardiovascular: regular rate and rhythm (S1-S2 heard) Gastrointestinal: soft, non-tender, bowel sounds Extremities: edema (Trace) Labs Result Diagram: 07/09/18 0611 07/09/18 0611 Results 24hrs Laboratory Tests Test 07/08/18 21:10 07/09/18 06:11 Urine Color YELLOW Urine Clarity CLEAR Urine pH 5.0 Urine Specific [place] 1.010 Urine Ketones NEGATIVE Urine Nitrite NEGATIVE Urine Bilirubin NEGATIVE Urine Urobilinogen NEGATIVE Urine Leukocyte Esterase NEGATIVE Urine Microscopic RBC 8 H Urine Microscopic WBC 1 Urine Hemoglobin 1+ H Urine Glucose NEGATIVE Urine Total Protein NEGATIVE White Blood Count 9.8 # Red Blood Count 3.46 L Hemoglobin 11.2 L Hematocrit 35.3 L Mean Corpuscular Volume 102.0 H Mean Corpuscular Hemoglobin 32.4 Mean Corpuscular Hemoglobin Concent 31.7 L Red Cell Distribution Width 14.4 Platelet Count 162 Mean Platelet Volume 11.1 H Immature Granulocytes % 0.500 H Neutrophils % 66.5 Lymphocytes % 26.7 Monocytes % 3.8 Eosinophils % 2.1 Basophils % 0.4 Nucleated Red Blood Cells % 0.0 Immature Granulocytes # 0.050 H Neutrophils # 6.5 Lymphocytes # 2.6 Monocytes # 0.4 Eosinophils # 0.2 Basophils # 0.0 Nucleated Red Blood Cells # 0.0 Sodium Level 137 Potassium Level 3.8 Chloride Level 104 Carbon Dioxide Level 25 Anion Gap 8 Blood Urea Nitrogen 21 H Creatinine 0.90 Est Glomerular Filtrat Rate mL/min Glucose Level 91 Calcium Level 8.1 L Magnesium Level 1.8 Total Bilirubin 0.7 Direct Bilirubin 0.00 Indirect Bilirubin 0.7 Aspartate Amino Transf (AST/SGOT) 56 H Alanine Aminotransferase (ALT/SGPT) 53 Alkaline Phosphatase 99 B-Type Natriuretic Peptide 7430 H Total Protein 6.5 Albumin 3.3 Globulin 3.20 Albumin/Globulin Ratio 1.03 Medications Medications Current Medications Atorvastatin Calcium (Lipitor) 10 mg QHS PO Last administered on 07/08/18 20:40; Admin Dose 10 MG; Start 07/08/18 at 21:00 Levothyroxine Sodium (Synthroid) 112 mcg BEFORE BREAKFAST PO Last administered on 07/09/18 06:44; Admin Dose 112 MCG; Start 07/09/18 at 07:00 Lisinopril (Zestril) 2.5 mg DAILY PO Last administered on 07/09/18 08:40; Admin Dose 2.5 MG; Start 07/09/18 at 09:00 Polyethylene Glycol (Miralax) 17 gm DAILY PO ; Start 07/09/18 at 09:00 Sertraline HCl (Zoloft) 100 mg DAILY PO Last administered on 07/09/18 08:38; Admin Dose 100 MG; Start 07/09/18 at 09:00 Warfarin Sodium (Coumadin) 4 mg DAILY@1700 PO Last administered on 07/08/18 18:30; Admin Dose 4 MG; Start 07/08/18 at 17:00 Zolpidem Tartrate (Ambien) 5 mg HS PRN PO INSOMNIA; Start 07/08/18 at 13:30 Piperacillin Sod/ Tazobactam Sod 100 ml @ 200 mls/hr Q8 IVPB Last administered on 07/09/18 14:20; Admin Dose 200 MLS/HR; Start 07/08/18 at 13:30 Acetaminophen (Tylenol Tab) 650 mg Q4H PRN PO MILD PAIN(1-3)OR ELEVATED TEMP Last administered on 07/09/18 14:22; Admin Dose 650 MG; Start 07/08/18 at 13:30 Acetaminophen/ Hydrocodone Bitart ([place] (5/325)) 1 tab Q6H PRN PO MODERATE PAIN LEVEL 4-6 Last administered on 07/08/18 18:31; Admin Dose 1 TAB; Start 07/08/18 at 13:30 Ondansetron HCl (Zofran Inj) 4 mg Q6H PRN IV NAUSEA AND/OR VOMITING; Start 07/08/18 at 13:30 Nicotine (Nicoderm 14 Mg/ 24hr) 1 patch DAILY TRANSDERM Last administered on 07/09/18 08:38; Admin Dose 1 PATCH; Start 07/08/18 at 17:30 Furosemide (Lasix) 20 mg BID DIURETICS IV Last administered on 07/09/18 05:21; Admin Dose 20 MG; Start 07/08/18 at 19:03 Issa Winters DO Jul 09, 2018 16:43
[2018-07-09] MEDS: WARFARIN 2 MG TAB PO SCH (17:07)
[2018-07-09] MEDS: ATORVASTATIN 10 MG TAB PO SCH (21:00)
[2018-07-10] VITALS (9 sets, daily range): BP systolic 117–152; BP diastolic 57–72; PULSE 70–83; RESP 18–20
[2018-07-10] MEDS: HYDROCODONE/APAP (5/325) TAB PO PRN (02:34)
[2018-07-10] MEDS: PIPER-TAZO 3.375 GM IV (PMX) 100 ML IVPB SCH ×3 (06:13→20:35)
[2018-07-10] MEDS: LEVOTHYROXINE 112 MCG TAB PO SCH (06:14)
[2018-07-10] MEDS: SERTRALINE 100 MG TAB PO SCH (09:07)
[2018-07-10] MEDS: LISINOPRIL 5 MG TAB PO SCH (09:08)
[2018-07-10] MEDS: NICOTINE (14 MG/24 HR) PATCH TRANSDERM SCH (09:08)
[2018-07-10] MEDS: FUROSEMIDE 20 MG TAB PO SCH ×2 (09:08→17:30)
--- NOTE | 2018-07-10 09:21 | PN ---
DATE: 07/10/2018 SUBJECTIVE: The patient is feeling better, less cough, less weakness, less short of breath. OBJECTIVE: VITAL SIGNS: Temperature 98.0, pulse of 80, respirations 18, blood pressure 117/57, oxygen saturatio n 98% on room air. GENERAL: Well-developed female in no acute distress, sitting up in chair. LUNGS: Bilateral coarse rhonchi with basilar crackles, improved from yesterday. HEART: Regular rate and rhythm. ABDOMEN: Soft, nontender. EXTREMITIES: No cyanosis, clubbing. There is trace bilateral lower extremity edema. LABORATORY DATA: INR is 2.11. Sodium 141, potassium 3.7, chloride 106, bicarbonate 29, BUN 18, crea tinine 0.82, calcium 8.9. Brain natriuretic peptide is 4540, white blood cell count 9.0, hemoglobin 11.8, hematocrit 36.9, platelets 179. ASSESSMENT AND PLAN: 1. Acute and chronic combined congestive heart failure/coronary disease/hypertension. The patient s lowly improving. We will continue with diuresis, telemetry monitoring and adjust medications. The p atient continues to require telemetric monitoring. 2. Systemic inflammatory response syndrome. The patient with stable white blood cell count, no feve r, and will continue on antibiotics. We will repeat chest x-ray today to reevaluate. The patient wi ll continue to require antibiotics for a total of 10 days. 3. Generalized weakness, stable. Continue with physical therapy and improving infection and congest juan m heart failure. 4. Hypothyroidism, stable. Continue with medicines. 5. Depression, stable. Continue with medicines. Dictated By: MILY GRAVES MD SR/NTS Conf#: [id number] DID#: [id number] CC: MILY GRAVES MD;*EndCC*
--- NOTE | 2018-07-10 11:45 | CONS ---
Assessment/Plan Cardiology NYHA: II Heart Failure Type: Acute on Chronic Heart Failure Type: Diastolic Assessment/Plan Hospital Course (Demo Recall) Acute decompensated diastolic congestive heart failure Preserved ejection fraction echocardiogram 07/08/2018 Possible Sepsis/SIRS Atrial fibrillation History of pacemaker Active tobacco use -Patient with improvement of shortness of breath. Echocardiogram with preserved ejection fraction. Lasix adjusted to p.o. and twice daily dosing, continue as tolerated. -Echocardiogram performed on this admission with mitral valve regurgitation, would start DELROY inhibitor for afterload reduction and titrate as renal function and blood pressure permits. -Coumadin as per INR -DC planning Consultation Date/Type/Reason Admit Date/Time Jul 08, 2018 at 11:43 Initial Consult Date Type of Consult Cardiology Date/Time of Note DATE: 07/10/18 TIME: 11:42 24 HR Interval Summary Free Text/Dictation Feeling much better, denies shortness of breath, palpitations Exam/Review of Systems Vital Signs Vitals Vital Signs Date Temp Pulse Resp B/P (MAP) Pulse Ox O2 O2 Flow FiO2 Time Delivery Rate 07/10/18 98.1 71 20 119/62 97 Room Air 10:56 (81) 07/08/18 2.0 20:30 Intake and Output 07/09/18 07/09/18 07/10/18 1515:00 23:00 07:00 IntakeIntake Total 650 ml 200 ml BalanceBalance 650 ml 200 ml Exam Constitutional: alert, oriented (Sitting in chair, no apparent distress) Respiratory: other (Coarse breath sounds bilaterally, no wheezing) Cardiovascular: regular rate and rhythm (Occasional irregularities) Gastrointestinal: soft, non-tender, bowel sounds Extremities: other (No significant edema) Labs Result Diagram: 07/10/18 0607 07/10/18 0607 Results 24hrs Laboratory Tests Test 07/10/18 06:07 White Blood Count 9.0 Red Blood Count 3.62 L Hemoglobin 11.8 L Hematocrit 36.9 L Mean Corpuscular Volume 101.9 H Mean Corpuscular Hemoglobin 32.6 Mean Corpuscular Hemoglobin Concent 32.0 Red Cell Distribution Width 14.0 Platelet Count 179 Mean Platelet Volume 10.9 H Immature Granulocytes % 0.400 Neutrophils % Segmented Neutrophils % (Manual) 45 Band Neutrophils % (Manual) 9 H Lymphocytes % Lymphocytes % (Manual) 25 Reactive Lymphocytes % (Manual) 5 H Monocytes % Monocytes % (Manual) 10 Eosinophils % Eosinophils % (Manual) 4 Basophils % Basophils % (Manual) 1 Myelocytes % (Manual) 1 H Nucleated Red Blood Cells % 0.0 Immature Granulocytes # 0.040 H Neutrophils # Neutrophils # (Manual) 4.1 Band Neutrophils # 0.8 H Lymphocytes (Manual) 2.2 Lymphocytes # Reactive Lymphocytes # 0.4 H Monocytes # Monocytes # (Manual) 0.9 Eosinophils # Basophils # Basophils # (Manual) 0.0 Myelocytes # 0.0 Nucleated Red Blood Cells # Platelet Estimate NORMAL Giant Platelets 1 H Anisocytosis 1+ Ovalocytes 1+ Prothrombin Time 23.7 H Prothrombin Time Ratio 1.9 INR International Normalized Ratio 2.11 Sodium Level 141 Potassium Level 3.7 Chloride Level 106 Carbon Dioxide Level 29 Anion Gap 6 Blood Urea Nitrogen 18 Creatinine 0.82 Est Glomerular Filtrat Rate mL/min Glucose Level 92 Calcium Level 8.9 B-Type Natriuretic Peptide 4540 H Medications Medications Current Medications Atorvastatin Calcium (Lipitor) 10 mg QHS PO Last administered on 07/08/18at 2 0:40; Admin Dose 10 MG; Start 07/08/18 at 21:00 Levothyroxine Sodium (Synthroid) 112 mcg BEFORE BREAKFAST PO Last administered on 07/10/18 06:14; Admin Dose 112 MCG; Start 07/09/18 at 07:00 Lisinopril (Zestril) 2.5 mg DAILY PO Last administered on 07/10/18 09:08; Admin Dose 2.5 MG; Start 07/09/18 at 09:00 Polyethylene Glycol (Miralax) 17 gm DAILY PO Last administered on 07/09/18 21:22; Admin Dose 17 GM; Start 07/09/18 at 09:00 Sertraline HCl (Zoloft) 100 mg DAILY PO Last administered on 07/10/18 09:07; Admin Dose 100 MG; Start 07/09/18 at 09:00 Warfarin Sodium (Coumadin) 4 mg DAILY@1700 PO Last administered on 07/09/18 17:07; Admin Dose 4 MG; Start 07/08/18 at 17:00 Zolpidem Tartrate (Ambien) 5 mg HS PRN PO INSOMNIA Last administered on 07/09/18 21:30; Admin Dose 5 MG; Start 07/08/18 at 13:30 Piperacillin Sod/ Tazobactam Sod 100 ml @ 200 mls/hr Q8 IVPB Last administered on 07/10/18 06:13; Admin Dose 200 MLS/HR; Start 07/08/18 at 13:30 Acetaminophen (Tylenol Tab) 650 mg Q4H PRN PO MILD PAIN(1-3)OR ELEVATED TEMP Last administered on 07/09/18 14:22; Admin Dose 650 MG; Start 07/08/18 at 13:30 Acetaminophen/ Hydrocodone Bitart ([place] (5/325)) 1 tab Q6H PRN PO MODERATE NOE N LEVEL 4-6 Last administered on 07/10/18 02:34; Admin Dose 1 TAB; Start 07/08/18 at 13:30 Ondansetron HCl (Zofran Inj) 4 mg Q6H PRN IV NAUSEA AND/OR VOMITING; Start 07/08/18 at 13:30 Nicotine (Nicoderm 14 Mg/ 24hr) 1 patch DAILY TRANSDERM Last administered on 07/10/18 09:08; Admin Dose 1 PATCH; Start 07/08/18 at 17:30 Furosemide (Lasix) 20 mg BID DIURETICS PO Last administered on 07/10/18 09:08; Admin Dose 20 MG; Start 07/10/18 at 08:00 Issa Winters DO Jul 10, 2018 11:45
[2018-07-10] MEDS: WARFARIN 2 MG TAB PO SCH (17:30)
[2018-07-10] MEDS: ATORVASTATIN 10 MG TAB PO SCH (20:36)
[2018-07-11] VITALS: BP 115/67; PULSE 70; PULSE 84; RESP 18
[2018-07-11 04:00] VITALS: BP 124/59; PULSE 70; RESP 18
[2018-07-11] MEDS: FUROSEMIDE 20 MG TAB PO SCH (05:35)
[2018-07-11] MEDS: PIPER-TAZO 3.375 GM IV (PMX) 100 ML IVPB SCH ×2 (05:35→13:49)
[2018-07-11] MEDS: LEVOTHYROXINE 112 MCG TAB PO SCH (05:35)
[2018-07-11 07:37] VITALS: BP 123/64; PULSE 80; RESP 20
[2018-07-11 08:00] VITALS: PULSE 70
[2018-07-11] MEDS: SERTRALINE 100 MG TAB PO SCH (08:39)
[2018-07-11] MEDS: POLYETHYLENE GLYCOL 17 GM PACKET PO SCH (08:39)
[2018-07-11] MEDS: NICOTINE (14 MG/24 HR) PATCH TRANSDERM SCH (08:42)
[2018-07-11] MEDS ORDERED: LISINOPRIL 5 MG TAB PO SCH (09:00)
--- NOTE | 2018-07-11 09:35 | DS ---
Date/Time of Note Date/Time of Note DATE: 07/11/18 TIME: 09:35 Discharge Summary Admission/Discharge Info Admit Date/Time Jul 08, 2018 at 11:43 Discharge Date/Time 07/11/2018 1400 Discharge Diagnosis 1. CHF/ CAD/ HTN 2. Syst. Inflamm. Response Synd. 3. Weakness 4. Hypothyroid 5. Depression Patient Condition: Fair Consults Cardiology Procedures blood/ urine studies, cxr, 2d echo, ekg Hx of Present Illness Pt lives alone, came to [facility] ER c/o gradual increased weakness, incidentally cxr showing congestions & pneumonitis & ua brewing uti, then admitted to [place] hospital bed. Hospital Course Pt responded well to atbx. Pt quickly recovered w/ diuretic, better breathing. Today pt is vss, afebrile, eating better, walking around without sob. Pt wanting to go home for quieter care from daughter to recuperate. Home Meds Active Scripts Cefuroxime Axetil* (Cefuroxime Axetil*) 500 Mg Tablet, 500 MG PO BID PRN for sched for 7 Days, TAB Prov:SILVIA ARECHIGA MD 07/11/18 Nitroglycerin* (Nitroglycerin* SL) 0.4 Mg Tab.subl, 0.4 MG SL Q5MIN PRN for CHEST PAIN, #14 BOTTLE Prov:SALLIE SARKAR DO 04/06/17 Polyethylene Glycol* (Miralax*) 17 Gm Powd.pack, 17 GM PO DAILY for CONSTIPATION, #7 Prov:SALLIE SARKAR DO 04/06/17 Reported Medications Hydrocodone/Acetaminophen ([place] 7.5-325 Tablet) 1 Each Tablet, 1 EACH PO DAILY PRN for SEVERE PAIN LEVEL 7-10, TAB 07/08/18 Multivitamin/Iron/Folic Acid (Centrum Adults Tablet) 1 Each Tablet, 1 EACH PO DAILY, TAB 07/08/18 Furosemide* (Furosemide*) 20 Mg Tablet, 20 MG PO QAM, #60 TAB 07/08/18 Cyanocobalamin* (Vitamin B12*) 500 Mcg Tab, 500 MCG PO DAILY, TAB 07/08/18 Levothyroxine Sodium* (Levothyroxine Sodium*) 112 Mcg Tablet, 112 MCG PO BEFORE BREAKFAST, #30 TAB 05/22/17 Atorvastatin Calcium (Atorvastatin Calcium) 10 Mg Tablet, 10 MG PO QHS, #30 TAB 05/22/17 Temazepam* (Temazepam*) 30 Mg Capsule, 30 MG PO HS PRN for INSOMNIA, CAP 05/22/17 Sertraline Hcl* (Sertraline Hcl*) 100 Mg Tablet, 100 MG PO DAILY, #30 TAB 05/22/17 Lisinopril* (Lisinopril*) 2.5 Mg Tablet, 2.5 MG PO DAILY, #30 TAB 05/22/17 Cyclobenzaprine Hcl* (Cyclobenzaprine Hcl*) 10 Mg Tablet, 10 MG PO QHS PRN for MUSCLE SPASMS, #60 TAB 05/22/17 Cholecalciferol* (Vitamin D3*) 1,000 Unit Tablet, 1000 UNIT PO DAILY, TAB 05/22/17 Warfarin Sodium* (Warfarin Sodium*) 4 Mg Tablet, 4 MG PO DAILY, TAB 05/22/17 Discontinued Reported Medications Folic Acid/Mv,Fe,Other Min (Centrum Complete Multivit Tab) 1 Each Tablet, 1 EACH PO DAILY, TAB 05/22/17 Hydrocodone/Acetaminophen ([place] 7.5-325 Tablet) 1 Each Tablet, 1 EACH PO DAILY PRN for SEVERE PAIN LEVEL 7-10, TAB 05/22/17 Discontinued Scripts Furosemide* (Lasix*) 20 Mg Tablet, 20 MG PO BID, #14 TAB Prov:SALLIE SARKAR DO 04/06/17 Follow-up Plan To home with pt's daughter. activity as tolerated. diet healthy low salt/ fat/ chol. appnt to Beckie Ayala MD within 1 week. Primary Care Provider José Manuel Ayala Time spent on discharge: > 30 minutes Pending Labs Laboratory Tests Test 07/11/18 05:34 Prothrombin Time 25.0 Sec (11.9-14.9) Prothrombin Time Ratio 2.0 INR International Normalized Ratio 2.26 Sodium Level 141 mmol/L (135-144) Potassium Level 3.4 mmol/L (3.5-5.1) Chloride Level 105 mmol/L (97-110) Carbon Dioxide Level 29 mmol/L (21-31) Anion Gap 7 (5-13) Blood Urea Nitrogen 16 mg/dl (7-20) Creatinine 0.97 mg/dl (0.44-1.00) Est Glomerular Filtrat Rate mL/min mL/min (>60) Glucose Level 87 mg/dl (70-220) Calcium Level 8.7 mg/dl (8.4-10.2) Magnesium Level 1.8 mg/dl (1.7-2.5) Total Bilirubin 0.2 mg/dl (0.2-1.3) Direct Bilirubin 0.00 mg/dl (0.00-0.20) Indirect Bilirubin 0.2 mg/dl (0-1.1) Aspartate Amino Transf (AST/SGOT) 28 IU/L (15-46) Alanine Aminotransferase (ALT/SGPT) 36 IU/L (13-69) Alkaline Phosphatase 87 IU/L (42-121) B-Type Natriuretic Peptide 4660 PG/ML (0-450) Total Protein 6.4 g/dl (6.1-8.1) Albumin 3.3 g/dl (3.3-4.9) Globulin 3.10 g/dl (1.3-3.2) Albumin/Globulin Ratio 1.06 SILVIA ARECHIGA MD Jul 11, 2018 09:35
--- NOTE | 2018-07-11 10:55 | CONS ---
Assessment/Plan Cardiology NYHA: II Heart Failure Type: Acute on Chronic Heart Failure Type: Diastolic Assessment/Plan Assessment/Plan (Daily) Acute decompensated diastolic congestive heart failure Preserved ejection fraction echocardiogram 07/08/2018 Possible Sepsis/SIRS Atrial fibrillation History of pacemaker Active tobacco use -Patient with improvement of shortness of breath. Echocardiogram with preserved ejection fraction. Lasix adjusted to p.o. and twice daily dosing, continue as tolerated. -Echocardiogram performed on this admission with mitral valve regurgitation, would start DELROY inhibitor for afterload reduction and titrate as renal function and blood pressure permits. -Coumadin as per INR -DC planning Consultation Date/Type/Reason Admit Date/Time Jul 08, 2018 at 11:43 Initial Consult Date Type of Consult Cardiology Date/Time of Note DATE: 07/11/18 TIME: 10:54 24 HR Interval Summary Free Text/Dictation the aptient stable overnight Exam/Review of Systems Vital Signs Vitals Vital Signs Date Temp Pulse Resp B/P (MAP) Pulse Ox O2 O2 Flow FiO2 Time Delivery Rate 07/11/18 70 08:00 07/11/18 97.6 20 123/64 97 Room Air 07:37 (83) 07/08/18 2.0 20:30 Intake and Output 07/10/18 07/10/18 07/11/18 1515:00 23:00 07:00 IntakeIntake Total 300 ml 600 ml 600 ml OutputOutput Total 1 ml BalanceBalance 299 ml 600 ml 600 ml Labs Result Diagram: 07/10/18 0607 07/11/18 0534 Results 24hrs Laboratory Tests Test 07/11/18 05:34 Prothrombin Time 25.0 H Prothrombin Time Ratio 2.0 INR International Normalized Ratio 2.26 Sodium Level 141 Potassium Level 3.4 L Chloride Level 105 Carbon Dioxide Level 29 Anion Gap 7 Blood Urea Nitrogen 16 Creatinine 0.97 Est Glomerular Filtrat Rate mL/min Glucose Level 87 Calcium Level 8.7 Magnesium Level 1.8 Total Bilirubin 0.2 Direct Bilirubin 0.00 Indirect Bilirubin 0.2 Aspartate Amino Transf (AST/SGOT) 28 Alanine Aminotransferase (ALT/SGPT) 36 Alkaline Phosphatase 87 B-Type Natriuretic Peptide 4660 H Total Protein 6.4 Albumin 3.3 Globulin 3.10 Albumin/Globulin Ratio 1.06 Medications Medications Current Medications Atorvastatin Calcium (Lipitor) 10 mg QHS PO Last administered on 07/10/18at 20:36; Admin Dose 10 MG; Start 07/08/18 at 21:00 Levothyroxine Sodium (Synthroid) 112 mcg BEFORE BREAKFAST PO Last administered on 07/11/18 05:35; Admin Dose 112 MCG; Start 07/09/18 at 07:00 Polyethylene Glycol (Miralax) 17 gm DAILY PO Last administered on 07/09/18 21:22; Admin Dose 17 GM; Start 07/09/18 at 09:00 Sertraline HCl (Zoloft) 100 mg DAILY PO Last administered on 07/11/18 08:39; Admin Dose 100 MG; Start 07/09/18 at 09:00 Warfarin Sodium (Coumadin) 4 mg DAILY@1700 PO Last administered on 07/10/18 17:30; Admin Dose 4 MG; Start 07/08/18 at 17:00 Zolpidem Tartrate (Ambien) 5 mg HS PRN PO INSOMNIA Last administered on 07/09/18 21:30; Admin Dose 5 MG; Start 07/08/18 at 13:30 Piperacillin Sod/ Tazobactam Sod 100 ml @ 200 mls/hr Q8 IVPB Last administered on 07/11/18 05:35; Admin Dose 200 MLS/HR; Start 07/08/18 at 13:30 Acetaminophen (Tylenol Tab) 650 mg Q4H PRN PO MILD PAIN(1-3)OR ELEVATED TEMP Last administered on 07/09/18 14:22; Admin Dose 650 MG; Start 07/08/18 at 13:30 Acetaminophen/ Hydrocodone Bitart ([place] (5/325)) 1 tab Q6H PRN PO MODERATE PAIN LEVEL 4-6 Last administered on 07/10/18 02:34; Admin Dose 1 TAB; Start 07/08/18 at 13:30 Ondansetron HCl (Zofran Inj) 4 mg Q6H PRN IV NAUSEA AND/OR VOMITING Last administered on 07/10/18 17:32; Admin Dose 4 MG; Start 07/08/18 at 13:30 Nicotine (Nicoderm 14 Mg/ 24hr) 1 patch DAILY TRANSDERM Last administered on 07/10/18 09:08; Admin Dose 1 PATCH; Start 07/08/18 at 17:30 Furosemide (Lasix) 20 mg BID DIURETICS PO Last administered on 3/2/19at 05:35; Admin Dose 20 MG; Start 07/10/18 at 08:00 Lisinopril (Zestril) 2.5 mg DAILY PO Last administered on 07/11/18at 08:40; Admin Dose 2.5 MG; Start 07/11/18 at 09:00 LESLY LARSON MD Jul 11, 2018 10:54
[2018-07-11 11:25] VITALS: BP 93/54; PULSE 70; RESP 20
[2018-07-11] MEDS ORDERED: CEFU500T45 PO (11:26)
[2018-07-11 12:00] VITALS: PULSE 71
== END 2018-07-11 15:33 | disposition home or self-care (01) | DRG 871 ==
LOC: E/R 09:05 → TEL 11:43
PROVIDERS: ADMIT Internal Medicine; ATTEND Internal Medicine
DX: A41.9 Sepsis, unspecified organism (principal); I50.33 Acute on chronic diastolic (congestive) heart failure; Z68.1 Body mass index [BMI] 19.9 or less, adult; I11.0 Hypertensive heart disease with heart failure; E86.0 Dehydration; M32.9 Systemic lupus erythematosus, unspecified; I48.0 Paroxysmal atrial fibrillation; F17.210 Nicotine dependence, cigarettes, uncomplicated; E03.9 Hypothyroidism, unspecified; G47.00 Insomnia, unspecified; F32.9 Major depressive disorder, single episode, unspecified; I73.9 Peripheral vascular disease, unspecified; I34.0 Nonrheumatic mitral (valve) insufficiency; I25.10 Atherosclerotic heart disease of native coronary artery without angina pectoris; M47.26 Other spondylosis with radiculopathy, lumbar region; Z79.01 Long term (current) use of anticoagulants; Z95.0 Presence of cardiac pacemaker
CPT/HCPCS: 36415; 71045; 80048; 80053; 81001; 82550; 82553; 83690; 83735; 83880; 84484; 85025; 85610; 85730; 87086; 87400; 93005; 93306; 96374; 97161; J1940; J2405; J2543; J3475; J7030